=== PATIENT | female | born 1980 | race Two or more races ===

== ENCOUNTER → 2016-07-01 | Outpatient (CLI) | payer OTHER ==
[~2016-07-01] MED LIST: ALLEGRA-D PO; ALLEGRA180 PO; AMBIEN10 PO; AMOXIL875 PO; ANTIV 25 PO; CARAFATE1 PO; CIPRO250 PO; CIPRO500 PO; DARVOCET-N PO; DOXYCYC100 PO; FLONASESPR NASAL; IBUP600T; MECLIZIN PO; MOBIC7.5 PO; PAXIL20 PO; PHENERGA25 PO; PROTONIX40 PO; PYRIDIU200 PO; TOPAMAX PO; VICO5TAB; WELLBUT300 PO; [UNRECOGNIZED DRUG - OTHER] PO
--- NOTE | 2016-07-01 10:37 | REP ---
Clinical: Pain. Technique: AP, lateral, bilateral oblique views of the right and left foot. Comparison: 2012. Findings: No acute fracture or dislocation. Skeletal structures, joint spaces, and surrounding soft tissues are symmetric and normal for age. No overt osteoarthritic degenerative changes are appreciated. No subcutaneous emphysema or radiodense foreign body. Impression: Normal, symmetric, age-appropriate bilateral foot series. Signed by Samir Johnson MD 07/01/2016 10:28 A
[2016-07-01 18:59] LABS: ALBUMIN/GLOBULIN RATIO 1.21 (1.00-1.93); ALKALINE PHOSPHATASE 75 U/L (45-117); ALT/SGPT 26 U/L (12-78); ANION GAP 8 MEQ/L (8-16); AST/SGOT 17 U/L (15-37); BILIRUBIN,TOTAL 1.3 MG/DL (0.2-1.0); BLOOD UREA NITROGEN 13 MG/DL (7-18); CALCIUM LEVEL 8.5 MG/DL (8.5-10.1); CARBON DIOXIDE LEVEL 27 MEQ/L (21-32); CHLORIDE LEVEL 105 MEQ/L (98-107); CHOLESTEROL LEVEL 200 MG/DL (<200); CREATININE FOR GFR 0.83 MG/DL (0.55-1.02); GLOMERULAR FILTRATION RATE > 60.0 (>60); GLUCOSE, FASTING 87 MG/DL (70-105); MAGNESIUM LEVEL 2.2 MG/DL (1.8-2.4); MEAN CORPUSCULAR HEMOGLOBIN 29.6 pg (27.0-33.0); POTASSIUM SERUM 4.1 MEQ/L (3.5-5.1); RED CELL DISTRIBUTION WIDTH 12.4 % (11.5-14.5); SODIUM LEVEL 140 MEQ/L (136-145); TOTAL PROTEIN 7.3 GM/DL (6.4-8.2); TRIGLYCERIDES LEVEL 53 MG/DL (<150); WHITE BLOOD COUNT 3.6 K/mm3 (4.0-10.0)
[2016-07-02 10:22] LABS: VITAMIN B12 LEVEL 374 PG/ML (247-911)
== END ==
LOC: M WUC 09:57
PROVIDERS: ATTEND Physician Assistant
DX: Z00.00 Encounter for general adult medical examination without abnormal findings (principal); G43.109 Migraine with aura, not intractable, without status migrainosus; R00.2 Palpitations; M79.671 Pain in right foot

== ENCOUNTER 2016-07-29 11:42 | Emergency (ER) | payer OTHER ==
[~2016-07-29] VITALS: Ht 162.6 cm; Wt 63.0 kg
[2016-07-29 11:52] VITALS: BP 104/75
[2016-07-29] MEDS ORDERED: naproxen PO (11:57)
[2016-07-29] MEDS ORDERED: NS 1,000 ML IV ONE (13:30)
[2016-07-29 13:53] LABS: BASO % 0.7 % (0.0-1.0); EOS % 0.9 % (0.0-3.0); LARGE UNSTAINED CELL # 0.1 K/mm3 (0.0-0.4); LARGE UNSTAINED CELL % 1.9 % (0.0-4.0); LYMPH # 1.3 K/mm3 (1.5-4.5); LYMPH % 30.3 % (24.0-44.0); MEAN CORPUSCULAR HGB CONC 35.9 g/dl (32.0-36.5); MEAN CORPUSCULAR VOLUME 86.3 fl (80.0-96.0); MONO # 0.3 K/mm3 (0.0-0.8); NEUTROPHILS # 2.7 K/mm3 (1.8-7.7); NEUTROPHILS % 60.2 % (36.0-66.0); PLATELET COUNT, AUTOMATED 197 k/mm3 (150-450); RED CELL DISTRIBUTION WIDTH 12.6 % (11.5-14.5); WHITE BLOOD COUNT 4.4 K/mm3 (4.0-10.0)
[2016-07-29 14:05] LABS: ALBUMIN/GLOBULIN RATIO 1.05 (1.00-1.93); ALKALINE PHOSPHATASE 68 U/L (45-117); ALT/SGPT 31 U/L (12-78); ANION GAP 7 MEQ/L (8-16); AST/SGOT 25 U/L (15-37); BILIRUBIN,DIRECT 0.2 MG/DL (0.0-0.2); BILIRUBIN,TOTAL 1.2 MG/DL (0.2-1.0); BLOOD UREA NITROGEN 8 MG/DL (7-18); CALCIUM LEVEL 8.4 MG/DL (8.5-10.1); CARBON DIOXIDE LEVEL 27 MEQ/L (21-32); CHLORIDE LEVEL 104 MEQ/L (98-107); CREATININE FOR GFR 0.85 MG/DL (0.55-1.02); GLOMERULAR FILTRATION RATE > 60.0 (>60); GLUCOSE, FASTING 84 MG/DL (70-105); POTASSIUM SERUM 3.6 MEQ/L (3.5-5.1); SODIUM LEVEL 138 MEQ/L (136-145); TOTAL PROTEIN 7.8 GM/DL (6.4-8.2)
--- NOTE | 2016-07-29 18:06 | ECGEPIP ---
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 RBBB MODERATE T-WAVE ABNORMALITY, CONSIDER ANTERIOR ISCHEMIA NO PRIORS Electronically Signed On 07-29-2016 18:05:57 EDT by Heath Wong
== END 2016-07-29 14:51 | disposition home or self-care (01) ==
LOC: M ED 12:15
DX: R00.2 Palpitations (principal); Z88.5 Allergy status to narcotic agent; Z88.8 Allergy status to other drugs, medicaments and biological substances

== ENCOUNTER → 2016-08-07 | Outpatient (REF) | payer OTHER ==
[~2016-08-07] MED LIST changes: +naproxen PO
== END ==
LOC: M LAB REF 16:31
PROVIDERS: ATTEND Nurse Practitioner Women's Health
DX: R30.0 Dysuria (principal)

== ENCOUNTER → 2017-01-16 | Outpatient (REF) | payer OTHER ==
[2017-01-16 16:31] LABS: BASO % 0.9 % (0.0-1.0); EOS % 0.9 % (0.0-3.0); IMMATURE GRANULOCYTE % 0.2 % (0-0); LYMPH # 1.3 10^3/uL (1.5-4.5); LYMPH % 28.2 % (24.0-44.0); MEAN CORPUSCULAR HGB CONC 35.2 g/dl (32.0-36.5); MEAN CORPUSCULAR VOLUME 85.4 fl (80.0-96.0); MONO # 0.4 10^3/uL (0.0-0.8); NEUTROPHILS # 2.8 10^3/uL (1.8-7.7); NEUTROPHILS % 60.8 % (36.0-66.0); PLATELET COUNT, AUTOMATED 222 10^3/uL (150-450); RED CELL DISTRIBUTION WIDTH 12.2 % (11.5-14.5); WHITE BLOOD COUNT 4.6 10^3/uL (4.0-10.0)
[2017-01-16 16:58] LABS: ALBUMIN 4.1 GM/DL (3.2-5.2); ALBUMIN/GLOBULIN RATIO 1.24 (1.00-1.93); ALKALINE PHOSPHATASE 66 U/L (45-117); ALT/SGPT 22 U/L (12-78); ANION GAP 8 MEQ/L (8-16); AST/SGOT 16 U/L (15-37); BILIRUBIN,TOTAL 1.2 MG/DL (0.2-1.0); BLOOD UREA NITROGEN 12 MG/DL (7-18); CALCIUM LEVEL 8.9 MG/DL (8.5-10.1); CARBON DIOXIDE LEVEL 28 MEQ/L (21-32); CHLORIDE LEVEL 106 MEQ/L (98-107); CREATININE FOR GFR 0.84 MG/DL (0.55-1.02); GLOMERULAR FILTRATION RATE > 60.0 (>60); GLUCOSE, FASTING 103 MG/DL (70-105); POTASSIUM SERUM 4.2 MEQ/L (3.5-5.1); SODIUM LEVEL 142 MEQ/L (136-145); T UPTAKE 32 % (30-39); THYROXINE (T4) 8.8 UG/DL (4.5-12.0); TOTAL PROTEIN 7.4 GM/DL (6.4-8.2)
== END ==
LOC: M SFHCSACK 08:41
PROVIDERS: ATTEND Physician Assistant
DX: R53.83 Other fatigue (principal)

== ENCOUNTER → 2017-10-12 | Outpatient (CLI) | payer OTHER ==
[2017-10-12 20:10] LABS: BASO % 0.5 % (0.0-1.0); EOS % 0.5 % (0.0-3.0); HEMATOCRIT 37.8 % (36.0-47.0); HEMOGLOBIN 13.2 g/dl (12.0-15.5); IMMATURE GRANULOCYTE % 0.3 % (0-3.0); LYMPH # 1.7 10^3/uL (1.5-4.5); MEAN CORPUSCULAR HEMOGLOBIN 29.8 pg (27.0-33.0); MEAN CORPUSCULAR HGB CONC 34.9 g/dl (32.0-36.5); MEAN CORPUSCULAR VOLUME 85.3 fl (80.0-96.0); MONO # 0.5 10^3/uL (0.0-0.8); MONO % 8.1 % (0.0-5.0); NEUTROPHILS # 3.7 10^3/uL (1.8-7.7); NEUTROPHILS % 61.6 % (36.0-66.0); PLATELET COUNT, AUTOMATED 222 10^3/uL (150-450); RED BLOOD COUNT 4.43 10^6/uL (4.00-5.40); RED CELL DISTRIBUTION WIDTH 12.3 % (11.5-14.5); WHITE BLOOD COUNT 5.9 10^3/uL (4.0-10.0)
[2017-10-12 20:44] LABS: ALBUMIN 4.1 GM/DL (3.2-5.2); ALBUMIN/GLOBULIN RATIO 1.17 (1.00-1.93); ALKALINE PHOSPHATASE 69 U/L (45-117); ALT/SGPT 23 U/L (12-78); AMYLASE 42 U/L (25-115); ANION GAP 6 MEQ/L (8-16); AST/SGOT 17 U/L (7-37); BILIRUBIN,TOTAL 1.1 MG/DL (0.2-1.0); BLOOD UREA NITROGEN 10 MG/DL (7-18); C REACTIVE PROTEIN QUANTITATIV < 0.30 MG/DL (0.00-0.30); CALCIUM LEVEL 8.7 MG/DL (8.5-10.1); CARBON DIOXIDE LEVEL 30 MEQ/L (21-32); CHLORIDE LEVEL 103 MEQ/L (98-107); CREATININE FOR GFR 0.87 MG/DL (0.55-1.30); GLOMERULAR FILTRATION RATE > 60.0 (>60); GLUCOSE, FASTING 81 MG/DL (70-100); LIPASE 211 U/L (73-393); POTASSIUM SERUM 4.2 MEQ/L (3.5-5.1); SODIUM LEVEL 139 MEQ/L (136-145); TOTAL PROTEIN 7.6 GM/DL (6.4-8.2)
== END ==
LOC: M WUC 18:18
DX: R10.30 Lower abdominal pain, unspecified (principal)

== ENCOUNTER → 2017-10-14 | Outpatient (CLI) | payer OTHER ==
[~2017-10-14] MED LIST changes: -ALLEGRA-D PO; -ALLEGRA180 PO; -AMBIEN10 PO; -AMOXIL875 PO; -ANTIV 25 PO; -CARAFATE1 PO; -CIPRO250 PO; -CIPRO500 PO; -DARVOCET-N PO; -DOXYCYC100 PO; -FLONASESPR NASAL; -IBUP600T; +ISOVUE-370 76% 100ML VIAL (Q9967) As Ordered; -MECLIZIN PO; -MOBIC7.5 PO; -PAXIL20 PO; -PHENERGA25 PO; -PROTONIX40 PO; -PYRIDIU200 PO; -TOPAMAX PO; -VICO5TAB; -WELLBUT300 PO; -[UNRECOGNIZED DRUG - OTHER] PO; -naproxen PO
== END ==
LOC: M RAD 14:43
DX: R10.30 Lower abdominal pain, unspecified (principal)
CPT/HCPCS: Q9967

== ENCOUNTER → 2017-12-10 | Outpatient (REF) | payer OTHER ==
[2017-12-10 21:03] LABS: AMORPHOUS SEDIMENT MODERATE (NEGATIVE); APPEARANCE, URINE HAZY (CLEAR); BACTERIA, URINE AUTO 1+ (NEGATIVE); BILIRUBIN, URINE AUTO NEGATIVE (NEGATIVE); BLOOD, URINE BLOOD 1+ (NEGATIVE); COLOR, URINE YELLOW (YELLOW); GLUCOSE, URINE (UA) AUTO NEGATIVE (NEGATIVE); KETONE, URINE AUTO NEGATIVE (NEGATIVE); LEUKOCYTE ESTERASE, URINE AUTO NEGATIVE (NEGATIVE); MUCUS, URINE SMALL (NEGATIVE); NITRITE, URINE AUTO NEGATIVE (NEGATIVE); PROTEIN, URINE AUTO NEGATIVE (NEGATIVE); RBC, URINE AUTO 2 /HPF (0-3); SPECIFIC GRAVITY URINE AUTO 1.021 (1.002-1.035); SQUAMOUS EPITHELIAL CELL UR AU 0 /HPF (0-6); UROBILINOGEN, URINE AUTO 0.2 mg/dL (0.0-2.0); WBC, URINE AUTO 1 /HPF (0-3)
== END ==
LOC: M LAB REF 16:32
DX: N39.0 Urinary tract infection, site not specified (principal)

== ENCOUNTER 2018-03-11 10:37 | Emergency (ER) | payer OTHER | END 2018-03-11 12:02 | disposition home or self-care (01) | LOC: M ED 10:37 | DX: S60.219A Contusion of unspecified wrist, initial encounter (principal); S80.10XA Contusion of unspecified lower leg, initial encounter; W00.9XXA Unspecified fall due to ice and snow, initial encounter; Y92.89 Other specified places as the place of occurrence of the external cause | CPT/HCPCS: 73110 ==

== ENCOUNTER → 2018-03-27 | Outpatient (CLI) | payer OTHER ==
[~2018-03-27] MED LIST changes: +ALLEGRA-D PO; +ALLEGRA180 PO; +AMBIEN10 PO; +AMOXIL875 PO; +ANTIV 25 PO; +CARAFATE1 PO; +CIPRO250 PO; +CIPRO500 PO; +COMB1DIS; +DARVOCET-N PO; +DOXYCYC100 PO; +FLONASESPR NASAL; +IBUP600T; -ISOVUE-370 76% 100ML VIAL (Q9967) As Ordered; +MECLIZIN PO; +MOBIC7.5 PO; +PAXIL20 PO; +PHENERGA25 PO; +PROTONIX40 PO; +PYRIDIU200 PO; +TOPAMAX PO; +VICO5TAB; +WELLBUT300 PO; +[UNRECOGNIZED DRUG - OTHER] PO; +naproxen PO
--- NOTE | 2018-03-27 16:33 | REP ---
Clinical: Trauma. Fall. Technique: AP, lateral, bilateral oblique views of the left elbow. Findings: No acute fracture or dislocation is appreciated. Joint spaces and surrounding soft tissues appear normal. Lateral view demonstrates normal positioning to the anterior and posterior fat pads without evidence for effusion/hemarthrosis. No subcutaneous emphysema or foreign body identified. Impression: No obvious acute fracture or dislocation. Electronically Signed by Samir Johnson MD 03/27/2018 04:25 P
--- NOTE | 2018-03-27 16:34 | REP ---
Clinical: Fall with trauma to left fifth digit Technique: AP, lateral, bilateral oblique views left fifth digit . Findings: The osseous structures and joint spaces are intact and normal. There is no evidence for acute fracture or dislocation. Surrounding soft tissues are unremarkable. No subcutaneous emphysema or radiodense foreign body. Impression: No obvious acute fracture or dislocation. Electronically Signed by Samir Johnson MD 03/27/2018 04:25 P
== END ==
LOC: M WUC 15:55
PROVIDERS: ATTEND Physician Assistant
DX: M79.645 Pain in left finger(s) (principal); M25.522 Pain in left elbow

== ENCOUNTER → 2018-06-17 | Outpatient (CLI) | payer OTHER ==
--- NOTE | 2018-06-17 10:15 | REP ---
Chest two views HISTORY: Cough Comparison: 03/30/2016 The lungs are clear. The heart is normal in size. The pulmonary vasculature is normal in appearance. The bony structure is intact. IMPRESSION: No acute disease. Electronically Signed by Donnie Vargas MD 06/17/2018 10:07 A
== END ==
LOC: M WUC 09:51
PROVIDERS: ATTEND Physician Assistant
DX: R05 Cough (principal)

== ENCOUNTER → 2018-08-10 | Outpatient (REF) | payer OTHER ==
[2018-08-10 13:27] LABS: BASO % 0.7 % (0.0-1.0); EOS # 0.1 10^3/uL (0.0-0.50); EOS % 0.8 % (0.0-3.0); HEMOGLOBIN 13.3 g/dl (12.0-15.5); LYMPH # 1.4 10^3/uL (1.5-4.5); LYMPH % 23.7 % (24.0-44.0); MEAN CORPUSCULAR HEMOGLOBIN 30.1 pg (27.0-33.0); MEAN CORPUSCULAR HGB CONC 34.1 g/dl (32.0-36.5); MEAN CORPUSCULAR VOLUME 88.2 fl (80.0-96.0); MONO # 0.4 10^3/uL (0.0-0.8); MONO % 6.1 % (0.0-5.0); NEUTROPHILS # 4.1 10^3/uL (1.8-7.7); NEUTROPHILS % 68.4 % (36.0-66.0); PLATELET COUNT, AUTOMATED 214 10^3/uL (150-450); RED BLOOD COUNT 4.42 10^6/uL (4.00-5.40)
[2018-08-10 13:48] LABS: ERYTHROCYTE SEDIMENTATION RATE 13 mm/hr (0-20)
[2018-08-10 14:05] LABS: ALBUMIN 3.9 GM/DL (3.2-5.2); ALT/SGPT 22 U/L (12-78); BILIRUBIN,TOTAL 0.8 MG/DL (0.2-1.0); BLOOD UREA NITROGEN 14 MG/DL (7-18); CALCIUM LEVEL 8.5 MG/DL (8.5-10.1); CARBON DIOXIDE LEVEL 28 MEQ/L (21-32); CHLORIDE LEVEL 106 MEQ/L (98-107); CREATININE FOR GFR 0.83 MG/DL (0.55-1.30); FOLATE 14.6 NG/ML; GLOMERULAR FILTRATION RATE > 60.0 (>58); GLUCOSE, FASTING 87 MG/DL (70-100); POTASSIUM SERUM 4.1 MEQ/L (3.5-5.1); RHEUMATOID FACTOR QUANT < 10.0 IU/ML (<15.0); SODIUM LEVEL 140 MEQ/L (136-145); TOTAL 25(OH) VITAMIN D 29.5 NG/ML (30.0-100.0); TOTAL PROTEIN 7.4 GM/DL (6.4-8.2); VITAMIN B12 LEVEL 547 PG/ML
[2018-08-11 14:11] LABS: ANTINUCLEAR ANTIBODIES DIRECT Negative (Negative)
== END ==
LOC: M LABNEURO 09:31
PROVIDERS: ATTEND Physician Assistant Medical
DX: R51 Headache (principal); R53.83 Other fatigue

== ENCOUNTER → 2018-12-14 | Outpatient (REF) | payer OTHER | LOC: M LAB REF 12:56 | PROVIDERS: ATTEND Nurse Practitioner Family | DX: R30.0 Dysuria (principal) ==

== ENCOUNTER → 2019-09-23 | Outpatient (CLI) | payer OTHER ==
[2019-09-24 17:07] LABS: ANTINUCLEAR ANTIBODIES DIRECT Negative (Negative); Lyme Disease IgG/IgM Antibodie <0.91 ISR (0.00-0.90); Lyme Disease IgM Ab Quantitati <0.80 index (0.00-0.79)
== END ==
LOC: M LAB 13:37
PROVIDERS: ATTEND Physician Assistant Medical
DX: M25.50 Pain in unspecified joint (principal)

== ENCOUNTER → 2020-01-23 | Outpatient (REF) | payer OTHER ==
[2020-01-23 18:31] LABS: ALBUMIN 4.1 GM/DL (3.2-5.2); ALT/SGPT 14 U/L (12-78); AMYLASE 37 U/L (25-115); BLOOD UREA NITROGEN 11 MG/DL (7-18); CALCIUM LEVEL 8.7 MG/DL (8.5-10.1); CARBON DIOXIDE LEVEL 30 MEQ/L (21-32); CHLORIDE LEVEL 106 MEQ/L (98-107); CREATININE FOR GFR 0.88 MG/DL (0.55-1.30); GLOMERULAR FILTRATION RATE > 60.0 (>58); GLUCOSE, FASTING 85 MG/DL (70-100); LIPASE 143 U/L (73-393); SODIUM LEVEL 141 MEQ/L (136-145); TOTAL PROTEIN 7.4 GM/DL (6.4-8.2)
[2020-01-23 18:38] LABS: BASO % 0.5 % (0.0-1.0); EOS % 0.5 % (0.0-3.0); HEMATOCRIT 39.9 % (36.0-47.0); HEMOGLOBIN 13.3 g/dl (12.0-15.5); LYMPH # 1.7 10^3/uL (1.5-5.0); LYMPH % 29.9 % (24.0-44.0); MEAN CORPUSCULAR HEMOGLOBIN 29.5 pg (27.0-33.0); MEAN CORPUSCULAR HGB CONC 33.3 g/dl (32.0-36.5); MEAN CORPUSCULAR VOLUME 88.5 fl (80.0-96.0); MONO # 0.4 10^3/uL (0.0-0.8); MONO % 7.9 % (0.0-5.0); NEUTROPHILS # 3.4 10^3/uL (1.5-8.5); PLATELET COUNT, AUTOMATED 250 10^3/uL (150-450); RED BLOOD COUNT 4.51 10^6/uL (4.00-5.40); WHITE BLOOD COUNT 5.6 10^3/uL (4.0-10.0)
[2020-01-23 19:46] LABS: ERYTHROCYTE SEDIMENTATION RATE 10 mm/hr (0-20)
== END ==
LOC: M SFHCPLAZ 14:20
PROVIDERS: ATTEND Physician Assistant
DX: R10.30 Lower abdominal pain, unspecified (principal)

== ENCOUNTER → 2020-01-23 | Outpatient (CLI) | payer OTHER ==
--- NOTE | 2020-01-23 15:15 | REPPI ---
INDICATION: LOW ABD PAIN COMPARISON: 10/12/2017 TECHNIQUE: Supine view of the abdomen and pelvis. FINDINGS: Bowel gas pattern is nonspecific although moderate fecal stasis is suggested. Stable phleboliths in the pelvis and surgical clips in the right lower quadrant are again noted. Skeletal structures intact. IMPRESSION: Fecal stasis. Otherwise nonspecific abdominal radiograph. <Electronically signed by Samir Johnson > 01/23/20 [id number]
== END ==
LOC: M PLAIMG 14:57
PROVIDERS: ATTEND Physician Assistant
DX: K59.00 Constipation, unspecified (principal); R10.30 Lower abdominal pain, unspecified

== ENCOUNTER → 2020-01-23 | Outpatient (CLI) | payer OTHER ==
--- NOTE | 2020-01-23 16:04 | REP ---
INDICATION: LOW ABD PAIN. COMPARISON: None. TECHNIQUE: Realtime grayscale ultrasound examination using curved array transducer. FINDINGS: The bladder is under distended and wall thickening cannot be assessed. Ureteral jets were not identified during the course of the examination. Pre void bladder measures 64 cc. Postvoid bladder measures 0 cc. IMPRESSION: Bladder is grossly unremarkable although incompletely distended on prevoid imaging. <Electronically signed by Samir Johnson > 01/23/20 1600
== END ==
LOC: M WHC 15:13
PROVIDERS: ATTEND Physician Assistant
DX: R10.30 Lower abdominal pain, unspecified (principal)

== ENCOUNTER → 2020-04-01 | Outpatient (CLI) | payer OTHER ==
--- NOTE | 2020-04-01 11:06 | REP ---
INDICATION: ELBOW INJURY COMPARISON: None. TECHNIQUE: AP, lateral, bilateral oblique views of the left elbow. FINDINGS: Lateral view best demonstrates a large joint effusion. No obvious acute fracture is identified and occult injury cannot be excluded.. IMPRESSION: Large joint effusion/hemarthrosis. No obvious acute fracture although occult injury cannot be excluded. <Electronically signed by Samir Johnson > 04/01/20 1101
== END ==
LOC: M WUC 09:01
PROVIDERS: ATTEND Physician Assistant
DX: M25.422 Effusion, left elbow (principal); M25.522 Pain in left elbow; W01.0XXA Fall on same level from slipping, tripping and stumbling without subsequent striking against object, initial encounter

== ENCOUNTER → 2021-02-03 | Outpatient (REF) | payer OTHER | LOC: M WUC 18:21 | PROVIDERS: ATTEND Physician Assistant | DX: J02.9 Acute pharyngitis, unspecified (principal) ==

== ENCOUNTER → 2021-03-18 | Outpatient (CLI) | payer OTHER ==
[2021-03-18 18:41] LABS: BASO % 0.7 % (0.0-1.0); EOS % 0.2 % (0.0-3.0); HEMATOCRIT 39.2 % (36.0-47.0); HEMOGLOBIN 13.6 g/dl (12.0-15.5); LYMPH # 1.5 10^3/uL (1.5-5.0); LYMPH % 26.4 % (24.0-44.0); MEAN CORPUSCULAR HEMOGLOBIN 29.8 pg (27.0-33.0); MEAN CORPUSCULAR HGB CONC 34.7 g/dl (32.0-36.5); MEAN CORPUSCULAR VOLUME 85.8 fl (80.0-96.0); MONO # 0.4 10^3/uL (0.0-0.8); MONO % 6.7 % (2.0-8.0); NEUTROPHILS # 3.7 10^3/uL (1.5-8.5); NEUTROPHILS % 65.8 % (36.0-66.0); PLATELET COUNT, AUTOMATED 236 10^3/uL (150-450); RED BLOOD COUNT 4.57 10^6/uL (4.00-5.40); WHITE BLOOD COUNT 5.7 10^3/uL (4.0-10.0)
[2021-03-18 21:30] LABS: ALBUMIN 4.2 GM/DL (3.2-5.2); ALT/SGPT 22 U/L (12-78); BLOOD UREA NITROGEN 11 MG/DL (7-18); CALCIUM LEVEL 9.4 MG/DL (8.5-10.1); CARBON DIOXIDE LEVEL 29 MEQ/L (21-32); CHLORIDE LEVEL 106 MEQ/L (98-107); CHOLESTEROL LEVEL 200 MG/DL (<200); CHOLESTEROL RISK RATIO 3.921 (<5); CREATININE FOR GFR 0.76 MG/DL (0.55-1.30); FREE T4 0.91 NG/DL (0.76-1.46); GLOMERULAR FILTRATION RATE > 60.0 (>58); GLUCOSE, FASTING 80 MG/DL (70-100); HDL CHOLESTEROL 51 MG/DL (>40); LDL CHOLESTEROL 122 MG/DL (<100); NON-HDL-C 149 MG/DL; POTASSIUM SERUM 3.8 MEQ/L (3.5-5.1); SODIUM LEVEL 141 MEQ/L (136-145); THYROID STIMULATING HORMONE 0.607 uIU/ML (0.358-3.740); TOTAL PROTEIN 7.4 GM/DL (6.4-8.2); TRIGLYCERIDES LEVEL 135 MG/DL (<150)
[2021-03-18 21:32] LABS: TOTAL 25(OH) VITAMIN D 20.4 NG/ML (30.0-100.0); VITAMIN B12 LEVEL 236 PG/ML (247-911)
[2021-03-19 11:12] LABS: PTH INTACT 31.5 PG/ML (18.5-88.0)
== END ==
LOC: M PLALAB 15:42
PROVIDERS: ATTEND Physician Assistant Medical
DX: R05.9 Cough, unspecified (principal); E55.9 Vitamin D deficiency, unspecified; E78.00 Pure hypercholesterolemia, unspecified; R53.83 Other fatigue; T78.40XD Allergy, unspecified, subsequent encounter

== ENCOUNTER → 2021-05-07 | Outpatient (CLI) | payer OTHER | LOC: M WHC 11:20 | PROVIDERS: ATTEND Physician Assistant Medical | DX: Z12.31 Encounter for screening mammogram for malignant neoplasm of breast (principal); E04.1 Nontoxic single thyroid nodule; Z78.0 Asymptomatic menopausal state ==

== ENCOUNTER → 2021-05-07 | Outpatient (CLI) | payer OTHER | LOC: M WHC 11:13 | PROVIDERS: ATTEND Physician Assistant Medical | DX: E04.1 Nontoxic single thyroid nodule (principal) ==

== ENCOUNTER → 2021-06-26 | Outpatient (CLI) | payer OTHER ==
[2021-06-26 13:15] LABS: BASO % 0.6 % (0.0-1.0); EOS % 0.6 % (0.0-3.0); HEMATOCRIT 37.8 % (36.0-47.0); HEMOGLOBIN 12.9 g/dl (12.0-15.5); LYMPH # 1.5 10^3/uL (1.5-5.0); LYMPH % 27.8 % (24.0-44.0); MEAN CORPUSCULAR HEMOGLOBIN 29.8 pg (27.0-33.0); MEAN CORPUSCULAR HGB CONC 34.1 g/dl (32.0-36.5); MEAN CORPUSCULAR VOLUME 87.3 fl (80.0-96.0); MONO # 0.4 10^3/uL (0.0-0.8); MONO % 8.1 % (2.0-8.0); NEUTROPHILS # 3.3 10^3/uL (1.5-8.5); NEUTROPHILS % 62.7 % (36.0-66.0); PLATELET COUNT, AUTOMATED 221 10^3/uL (150-450); RED BLOOD COUNT 4.33 10^6/uL (4.00-5.40); WHITE BLOOD COUNT 5.3 10^3/uL (4.0-10.0)
[2021-06-26 13:49] LABS: C REACTIVE PROTEIN QUANTITATIV < 0.30 MG/DL (0.00-0.30); RHEUMATOID FACTOR QUANT < 10.0 IU/ML (<15.0)
[2021-06-26 13:52] LABS: ERYTHROCYTE SEDIMENTATION RATE 12 mm/hr (0-20)
== END ==
LOC: M PLALAB 10:30
PROVIDERS: ATTEND Physician Assistant Medical
DX: M25.50 Pain in unspecified joint (principal)

== ENCOUNTER → 2021-08-27 | Outpatient (REF) | payer OTHER | LOC: M SFHCPLAZ 16:45 | PROVIDERS: ATTEND Physician Assistant | DX: R31.9 Hematuria, unspecified (principal) ==

== ENCOUNTER → 2021-09-23 | Outpatient (REF) | payer OTHER ==
[2021-09-23 18:41] LABS: APPEARANCE, URINE HAZY (CLEAR); BACTERIA, URINE AUTO NEGATIVE (NEGATIVE); BILIRUBIN, URINE AUTO NEGATIVE (NEGATIVE); BLOOD, URINE BLOOD 1+ (NEGATIVE); COLOR, URINE YELLOW (YELLOW); GLUCOSE, URINE (UA) AUTO NEGATIVE (NEGATIVE); KETONE, URINE AUTO TRACE mg/dL (NEGATIVE); LEUKOCYTE ESTERASE, URINE AUTO NEGATIVE (NEGATIVE); MUCUS, URINE SMALL (NEGATIVE); NITRITE, URINE AUTO NEGATIVE (NEGATIVE); PROTEIN, URINE AUTO NEGATIVE (NEGATIVE); RBC, URINE AUTO 2 /HPF (0-3); SPECIFIC GRAVITY URINE AUTO 1.021 (1.002-1.035); SQUAMOUS EPITHELIAL CELL UR AU 1 /HPF (0-6); UROBILINOGEN, URINE AUTO 0.2 mg/dL (0.0-2.0); WBC, URINE AUTO 2 /HPF (0-3)
== END ==
LOC: M SFHCPLAZ 17:09
PROVIDERS: ATTEND Physician Assistant Medical
DX: R31.9 Hematuria, unspecified (principal); R35.0 Frequency of micturition

== ENCOUNTER → 2021-09-24 | Outpatient (CLI) | payer OTHER | LOC: M PLAIMG 11:17 | PROVIDERS: ATTEND Physician Assistant Medical | DX: R31.9 Hematuria, unspecified (principal) ==

== ENCOUNTER → 2021-12-11 | Outpatient (CLI) | payer OTHER ==
[2021-12-11 17:43] LABS: INR 0.96; PROTHROMBIN TIME 13.2 SECONDS (12.7-14.5)
[2021-12-11 17:44] LABS: PARTIAL THROMBOPLASTIN TIME 28.1 SECONDS (25.9-37.0)
[2021-12-11 17:51] LABS: PLATELET COUNT, AUTOMATED 226 10^3/uL (150-450)
== END ==
LOC: M WUC 10:47
PROVIDERS: ATTEND Physician Assistant
DX: M54.16 Radiculopathy, lumbar region (principal)

== ENCOUNTER → 2023-09-14 | Outpatient (REF) | payer OTHER ==
[2023-09-14 11:40] LABS: APPEARANCE, URINE CLEAR (CLEAR); BACTERIA, URINE AUTO NEGATIVE (NEGATIVE); BILIRUBIN, URINE AUTO NEGATIVE (NEGATIVE); BLOOD, URINE BLOOD NEGATIVE (NEGATIVE); COLOR, URINE YELLOW (YELLOW); GLUCOSE, URINE (UA) AUTO NEGATIVE (NEGATIVE); KETONE, URINE AUTO NEGATIVE (NEGATIVE); LEUKOCYTE ESTERASE, URINE AUTO NEGATIVE (NEGATIVE); MUCUS, URINE SMALL (NEGATIVE); NITRITE, URINE AUTO NEGATIVE (NEGATIVE); PROTEIN, URINE AUTO NEGATIVE (NEGATIVE); RBC, URINE AUTO 1 /HPF (0-3); SPECIFIC GRAVITY URINE AUTO 1.026 (1.002-1.035); SQUAMOUS EPITHELIAL CELL UR AU 0 /HPF (0-6); UROBILINOGEN, URINE AUTO 0.2 mg/dL (0.0-2.0); WBC, URINE AUTO 1 /HPF (0-3)
== END ==
LOC: M SFHCPLAZ 09:54
PROVIDERS: ATTEND Physician Assistant Medical
DX: R30.9 Painful micturition, unspecified (principal)

== ENCOUNTER → 2023-09-16 | Outpatient (CLI) | payer OTHER ==
[2023-09-16 16:20] LABS: BASO % 0.7 % (0.0-1.0); EOS % 0.5 % (0.0-3.0); HEMATOCRIT 39.5 % (36.0-47.0); HEMOGLOBIN 14.1 g/dl (12.0-15.5); LYMPH # 1.6 10^3/uL (1.5-5.0); LYMPH % 29.3 % (24.0-44.0); MEAN CORPUSCULAR HEMOGLOBIN 30.9 pg (27.0-33.0); MEAN CORPUSCULAR HGB CONC 35.7 g/dl (32.0-36.5); MEAN CORPUSCULAR VOLUME 86.4 fl (80.0-96.0); MONO # 0.5 10^3/uL (0.0-0.8); MONO % 8.4 % (2.0-8.0); NEUTROPHILS # 3.4 10^3/uL (1.5-8.5); NEUTROPHILS % 60.9 % (36.0-66.0); PLATELET COUNT, AUTOMATED 242 10^3/uL (150-450); RED BLOOD COUNT 4.57 10^6/uL (4.00-5.40); WHITE BLOOD COUNT 5.6 10^3/uL (4.0-10.0)
[2023-09-16 16:48] LABS: ALBUMIN 4.3 G/DL (3.2-5.2); ALKALINE PHOSPHATASE 81 U/L (46-116); ALT/SGPT 41 U/L (7.0-40); AST/SGOT 19 U/L (<34); BILIRUBIN,TOTAL 1.4 MG/DL (0.3-1.2); BLOOD UREA NITROGEN 16 MG/DL (9-23); CALCIUM LEVEL 9.6 MG/DL (8.5-10.1); CARBON DIOXIDE LEVEL 30 MMOL/L (20-31); CHLORIDE LEVEL 105 MMOL/L (98-107); CHOLESTEROL LEVEL 233 MG/DL (<200); CHOLESTEROL RISK RATIO 4.17 (<5); CREATININE FOR GFR 0.79 MG/DL (0.55-1.30); FREE T4 0.94 NG/DL (0.89-1.76); GLOMERULAR FILTRATION RATE > 60.0 (>58); GLUCOSE, FASTING 85 MG/DL (60-100); HDL CHOLESTEROL 55.8 MG/DL (>40); LDL CHOLESTEROL 159.4 MG/DL (<100); NON-HDL-C 177.2 MG/DL; POTASSIUM SERUM 3.9 MMOL/L (3.5-5.1); SODIUM LEVEL 141 MMOL/L (136-145); THYROID STIMULATING HORMONE 1.081 uIU/ML (0.55-4.78); TOTAL PROTEIN 7.4 G/DL (5.7-8.2); TRIGLYCERIDES LEVEL 89 MG/DL (<150)
[2023-09-16 16:49] LABS: TOTAL 25(OH) VITAMIN D 22.2 NG/ML (20.0-100.0)
== END ==
LOC: M WUC 14:41
PROVIDERS: ATTEND Physician Assistant Medical
DX: E78.00 Pure hypercholesterolemia, unspecified (principal); E55.9 Vitamin D deficiency, unspecified; G43.009 Migraine without aura, not intractable, without status migrainosus; E53.8 Deficiency of other specified B group vitamins; E04.1 Nontoxic single thyroid nodule

== ENCOUNTER → 2023-09-22 | Outpatient (CLI) | payer OTHER | LOC: M PLAIMG 09:43 | PROVIDERS: ATTEND Physician Assistant Medical | DX: R31.29 Other microscopic hematuria (principal) ==

== ENCOUNTER → 2023-10-06 | Outpatient (CLI) | payer OTHER | LOC: M WHC 11:36 | PROVIDERS: ATTEND Physician Assistant Medical | DX: E04.1 Nontoxic single thyroid nodule (principal) ==

== ENCOUNTER → 2023-10-16 | Outpatient (CLI) | payer OTHER ==
[~2023-10-16] MED LIST changes: +CLAR5TAB11 PO; +LIDOCAINE 1% MDV 20ML VIAL As Ordered ONE; +RIZA10TA64 PO
== END ==
LOC: M IRPRO 11:58
PROVIDERS: ATTEND Physician Assistant Medical
DX: E04.1 Nontoxic single thyroid nodule (principal); Z53.9 Procedure and treatment not carried out, unspecified reason

== ENCOUNTER → 2023-10-30 | Outpatient (REF) | payer OTHER ==
[~2023-10-30] MED LIST changes: -LIDOCAINE 1% MDV 20ML VIAL As Ordered ONE
[2023-10-30 18:33] LABS: APPEARANCE, URINE CLEAR (CLEAR); BACTERIA, URINE AUTO NEGATIVE (NEGATIVE); BILIRUBIN, URINE AUTO NEGATIVE (NEGATIVE); BLOOD, URINE BLOOD 1+ (NEGATIVE); COLOR, URINE STRAW (YELLOW); GLUCOSE, URINE (UA) AUTO NEGATIVE (NEGATIVE); KETONE, URINE AUTO NEGATIVE (NEGATIVE); LEUKOCYTE ESTERASE, URINE AUTO NEGATIVE (NEGATIVE); NITRITE, URINE AUTO NEGATIVE (NEGATIVE); PROTEIN, URINE AUTO NEGATIVE (NEGATIVE); RBC, URINE AUTO 1 /HPF (0-3); SPECIFIC GRAVITY URINE AUTO 1.009 (1.002-1.035); SQUAMOUS EPITHELIAL CELL UR AU 0 /HPF (0-6); UROBILINOGEN, URINE AUTO 0.2 mg/dL (0.0-2.0); WBC, URINE AUTO 0 /HPF (0-3)
[2023-11-04 12:00] LABS: Candida species NOT DETECTED (NOT DETECTED); Gardnerella vaginalis DETECTED (NOT DETECTED); Trichamonas vaginalis NOT DETECTED (NOT DETECTED)
== END ==
LOC: M SMT 16:59
PROVIDERS: ATTEND Specialist
DX: R39.89 Other symptoms and signs involving the genitourinary system (principal); N36.8 Other specified disorders of urethra

== ENCOUNTER → 2024-01-25 | Outpatient (CLI) | payer OTHER | LOC: M PLALAB 13:11 | PROVIDERS: ATTEND Nurse Practitioner Family | DX: R14.0 Abdominal distension (gaseous) (principal) ==

== ENCOUNTER → 2024-02-15 | Outpatient (CLI) | payer OTHER ==
[~2024-02-15] MED LIST changes: +E-Z-GAS II EFFERVESCENT PACKET (SODIUM BICARB./CITRIC ACID/SIMETHICONE) As Ordered ONE; +E-Z-HD 98% w/w 340GM SUSP BTL As Ordered ONE; +E-Z-PAQUE 96% w/w SUSP 176GM BTL As Ordered ONE
== END ==
LOC: M RAD 09:46
PROVIDERS: ATTEND Nurse Practitioner Family
DX: R13.10 Dysphagia, unspecified (principal)

== ENCOUNTER 2024-03-21 11:31 | Day surgery (SDC) | payer OTHER ==
[~2024-03-21] VITALS: Ht 165.1 cm; Wt 70.8 kg
[~2024-03-21 11:31] MED LIST changes: -E-Z-GAS II EFFERVESCENT PACKET (SODIUM BICARB./CITRIC ACID/SIMETHICONE) As Ordered ONE; -E-Z-HD 98% w/w 340GM SUSP BTL As Ordered ONE; -E-Z-PAQUE 96% w/w SUSP 176GM BTL As Ordered ONE
[2024-03-21] MEDS ORDERED: propofoL 200 MG/20 ML VIAL As Ordered ONE (12:48)
[2024-03-21] MEDS ORDERED: fentaNYL 100 MCG/2 ML INJECTION As Ordered ONE (12:48)
[2024-03-21] MEDS ORDERED: LIDOCAINE 2% 100MG/5ML SDV (FOR ANES.) As Ordered ONE (12:48)
[2024-03-21 13:40] VITALS: TEMP 97.1
[2024-03-21 14:11] VITALS: BP 117/75; O2SAT 100
== END 2024-03-21 14:14 | disposition home or self-care (01) ==
LOC: M OPP 11:31
PROVIDERS: ATTEND Internal Medicine Gastroenterology
DX: Z12.11 Encounter for screening for malignant neoplasm of colon (principal); K57.30 Diverticulosis of large intestine without perforation or abscess without bleeding; K64.8 Other hemorrhoids; R13.12 Dysphagia, oropharyngeal phase; K21.9 Gastro-esophageal reflux disease without esophagitis; Z88.5 Allergy status to narcotic agent; Z88.6 Allergy status to analgesic agent; Z79.899 Other long term (current) drug therapy
CPT/HCPCS: 43239; 43450; 45380; 88305; J3010

== ENCOUNTER → 2024-04-12 | Outpatient (CLI) | payer OTHER ==
[2024-04-12 14:41] LABS: BASO % 0.6 % (0.0-1.0); EOS % 0.6 % (0.0-3.0); HEMATOCRIT 40.4 % (36.0-47.0); HEMOGLOBIN 13.8 g/dl (12.0-15.5); LYMPH # 1.4 10^3/uL (1.5-5.0); LYMPH % 26.7 % (24.0-44.0); MEAN CORPUSCULAR HEMOGLOBIN 29.7 pg (27.0-33.0); MEAN CORPUSCULAR HGB CONC 34.2 g/dl (32.0-36.5); MEAN CORPUSCULAR VOLUME 87.1 fl (80.0-96.0); MONO # 0.4 10^3/uL (0.0-0.8); MONO % 7.7 % (2.0-8.0); NEUTROPHILS # 3.3 10^3/uL (1.5-8.5); NEUTROPHILS % 64.2 % (36.0-66.0); PLATELET COUNT, AUTOMATED 222 10^3/uL (150-450); RED BLOOD COUNT 4.64 10^6/uL (4.00-5.40); WHITE BLOOD COUNT 5.1 10^3/uL (4.0-10.0)
[2024-04-12 15:15] LABS: ALBUMIN 4.1 G/DL (3.2-5.2); ALKALINE PHOSPHATASE 76 U/L (35-104); ALT/SGPT 34 U/L (7.0-40); AST/SGOT 21 U/L (<34); BILIRUBIN,TOTAL 0.9 MG/DL (0.3-1.2); BLOOD UREA NITROGEN 14 MG/DL (9-23); C REACTIVE PROTEIN QUANTITATIV < 0.50 MG/DL (<1.0); CALCIUM LEVEL 9.2 MG/DL (8.5-10.1); CARBON DIOXIDE LEVEL 28 MMOL/L (20-31); CHLORIDE LEVEL 107 MMOL/L (98-107); CHOLESTEROL LEVEL 232 MG/DL (<200); CHOLESTEROL RISK RATIO 4.48 (<5); CREATININE FOR GFR 0.78 MG/DL (0.55-1.30); FREE T4 1.01 NG/DL (0.89-1.76); GLOMERULAR FILTRATION RATE > 60.0 (>58); GLUCOSE, FASTING 92 MG/DL (60-100); HDL CHOLESTEROL 51.7 MG/DL (>40); LDL CHOLESTEROL 161.3 MG/DL (<100); NON-HDL-C 180.3 MG/DL; POTASSIUM SERUM 4.1 MMOL/L (3.5-5.1); PTH INTACT 63.7 PG/ML (18.5-88.0); RHEUMATOID FACTOR QUANT < 3.5 IU/ML (<14); SODIUM LEVEL 143 MMOL/L (136-145); THYROID STIMULATING HORMONE 1.347 uIU/ML (0.55-4.78); TOTAL PROTEIN 7.5 G/DL (5.7-8.2); TRIGLYCERIDES LEVEL 95 MG/DL (<150); VITAMIN B12 LEVEL 488 PG/ML (211-911)
[2024-04-12 20:27] LABS: ERYTHROCYTE SEDIMENTATION RATE 7 mm/hr (0-20)
[2024-04-13 14:02] LABS: ANA SCREEN, IFA NEGATIVE (NEGATIVE)
== END ==
LOC: M PLALAB 10:31
PROVIDERS: ATTEND Physician Assistant Medical
DX: E78.00 Pure hypercholesterolemia, unspecified (principal); E55.9 Vitamin D deficiency, unspecified; E89.40 Asymptomatic postprocedural ovarian failure; E04.1 Nontoxic single thyroid nodule; E53.8 Deficiency of other specified B group vitamins; R13.19 Other dysphagia; M45.9 Ankylosing spondylitis of unspecified sites in spine

== ENCOUNTER → 2024-04-25 | Outpatient (CLI) | payer OTHER | LOC: M WHC 14:44 | PROVIDERS: ATTEND Physician Assistant Medical | DX: Z12.31 Encounter for screening mammogram for malignant neoplasm of breast (principal) ==

== ENCOUNTER → 2024-05-11 | Outpatient (CLI) | payer OTHER | LOC: M PLAIMG 09:33 | PROVIDERS: ATTEND Physician Assistant Medical | DX: M51.26 Other intervertebral disc displacement, lumbar region (principal); M51.27 Other intervertebral disc displacement, lumbosacral region; M45.9 Ankylosing spondylitis of unspecified sites in spine ==

== ENCOUNTER → 2024-06-15 | Outpatient (CLI) | payer OTHER | LOC: M WHC 10:26 | PROVIDERS: ATTEND Physician Assistant Medical | DX: E04.1 Nontoxic single thyroid nodule (principal) ==

== ENCOUNTER → 2024-08-26 | Outpatient (CLI) | payer OTHER ==
[2024-08-26 17:57] LABS: BASO % 0.5 % (0.0-1.0); EOS % 0.5 % (0.0-3.0); HEMATOCRIT 38.5 % (36.0-47.0); HEMOGLOBIN 13.2 g/dl (12.0-15.5); LYMPH # 1.6 10^3/uL (1.5-5.0); LYMPH % 27.1 % (24.0-44.0); MEAN CORPUSCULAR HEMOGLOBIN 29.5 pg (27.0-33.0); MEAN CORPUSCULAR HGB CONC 34.3 g/dl (32.0-36.5); MEAN CORPUSCULAR VOLUME 85.9 fl (80.0-96.0); MONO # 0.4 10^3/uL (0.0-0.8); MONO % 6.5 % (2.0-8.0); NEUTROPHILS # 3.7 10^3/uL (1.5-8.5); NEUTROPHILS % 65.2 % (36.0-66.0); PLATELET COUNT, AUTOMATED 230 10^3/uL (150-450); RED BLOOD COUNT 4.48 10^6/uL (4.00-5.40); WHITE BLOOD COUNT 5.7 10^3/uL (4.0-10.0)
[2024-08-26 18:18] LABS: CHOLESTEROL RISK RATIO 4.51 (<5); HDL CHOLESTEROL 50.1 MG/DL (>40); LDL CHOLESTEROL 150.9 MG/DL (<100); NON-HDL-C 175.9 MG/DL
[2024-08-26 18:22] LABS: THYROID STIMULATING HORMONE 1.06 uIU/ML (0.55-4.78)
[2024-08-26 18:23] LABS: TOTAL 25(OH) VITAMIN D 11.2 NG/ML (20.0-100.0)
[2024-08-26 18:25] LABS: FREE T4 1.03 NG/DL (0.89-1.76)
== END ==
LOC: M PLALAB 15:07
PROVIDERS: ATTEND Physician Assistant Medical
DX: E04.1 Nontoxic single thyroid nodule (principal); E55.9 Vitamin D deficiency, unspecified; E53.8 Deficiency of other specified B group vitamins; M45.9 Ankylosing spondylitis of unspecified sites in spine; E78.00 Pure hypercholesterolemia, unspecified

== ENCOUNTER → 2024-11-16 | Outpatient (CLI) | payer OTHER | LOC: M PLALAB 12:45 | PROVIDERS: ATTEND Physician Assistant Medical | DX: R59.0 Localized enlarged lymph nodes (principal); M47.22 Other spondylosis with radiculopathy, cervical region; M54.6 Pain in thoracic spine ==

== ENCOUNTER → 2024-12-14 | Outpatient (CLI) | payer OTHER | LOC: M PLAIMG 08:55 | PROVIDERS: ATTEND Physician Assistant Medical | DX: M47.22 Other spondylosis with radiculopathy, cervical region (principal); M47.815 Spondylosis without myelopathy or radiculopathy, thoracolumbar region; M50.33 Other cervical disc degeneration, cervicothoracic region; M54.6 Pain in thoracic spine ==

== ENCOUNTER → 2024-12-29 | Outpatient (CLI) | payer OTHER | LOC: M WHC 13:40 | PROVIDERS: ATTEND Physician Assistant Medical | DX: E04.1 Nontoxic single thyroid nodule (principal) ==

== ENCOUNTER → 2025-01-27 | Outpatient (CLI) | payer OTHER ==
[2025-01-27 10:10] LABS: CREATININE FOR GFR 0.9 MG/DL (0.55-1.30); GLOMERULAR FILTRATION RATE 79.9 (>58)
== END ==
LOC: M LAB 09:13
PROVIDERS: ATTEND Otolaryngology
DX: R59.0 Localized enlarged lymph nodes (principal)

== ENCOUNTER → 2025-02-08 | Outpatient (CLI) | payer OTHER ==
[~2025-02-08] MED LIST changes: +ISOVUE-370 76% 100 ML VIAL As Ordered ONE
== END ==
LOC: M RAD 13:33
PROVIDERS: ATTEND Otolaryngology
DX: R59.0 Localized enlarged lymph nodes (principal); M47.812 Spondylosis without myelopathy or radiculopathy, cervical region
CPT/HCPCS: 70491; Q9967